=== PATIENT | male | born 1960 | race Caucasian/White ===

== ENCOUNTER 2022-10-02 11:01 | Outpatient (CLI) | payer MEDICARE, MEDICAID, SELFPAY ==
--- NOTE | 2022-10-02 11:05 | CT_ITS ---
WS: [id number] LDCT LUNG CANCER SCREENING HISTORY: NICOTINE DEPENDENCE,CIGARETTES TECHNIQUE: Axial imaging performed from the apices to 1 cm below the costophrenic angles. Coronal and sagittal reformats are submitted with axial MIP series. All CT scans at [facility] use at least one of these dose optimization techniques: automated exposure control; mA and/or kV adjustment per patient size (includes targeted exams where dose is matched to clinical indication); or iterativ e reconstruction. DLP: 84.69 mGy.cm DIvol: Mean CTDIvol: 1.60 (mGy) COMPARISON: None available. Diagnostic quality: Satisfactory. Lung Nodules: 7 mm irregular nodule RIGHT upper lobe, image 128 of series 4. Margins are slightly irr egular. Benign calcified granuloma LEFT lung base. Heart: Normal size heart. Scattered coronary artery calcifications. No effusion. Other findings: Incompletely visualized low-attenuation mass LEFT kidney measures 1.[address]/CT lung screening [id number] IMPRESSION: LUNG-RADS: 3S-Probably Benign with Significant Findings FOLLOW UP: 6 Month LDCT OTHER FINDINGS (S MODIFIER): Incompletely visualized low-attenuation mass LEFT kidney. Recommend follow-up ultrasound LEFT kidney to evaluate for cyst or vida d mass.
== END 2022-10-02 11:02 | disposition home or self-care (01) ==
LOC: RAD 11:02
PROVIDERS: PCP Nurse Practitioner Family; Visit Provider Family Medicine
DX: Z12.2 Encounter for screening for malignant neoplasm of respiratory organs (principal); F17.210 Nicotine dependence, cigarettes, uncomplicated
CPT/HCPCS: 71271

== ENCOUNTER 2022-12-18 14:26 | Outpatient (CLI) | payer MEDICARE, MEDICAID, SELFPAY ==
--- NOTE | 2022-12-18 14:41 | CT_ITS ---
WS: [id number] CT ABDOMEN AND PELVIS WITH CONTRAST HISTORY: RENAL MASS OF UNKNOWN NATURE TECHNIQUE: Imaging performed of the abdomen and pelvis with IV contrast. Single phase imaging of the abdomen. Coronal and sagittal reformats are submitted. All CT scans at [facility] use at [address] one of these dose optimization techniques: automated exposure control; mA and/or kV adjustment per patient size (includes targeted exams where dose is matched to clinical indication); or iterative re construction. IV CONTRAST: Omnipaque 350; 100 mL IV. Oral contrast: No DLP: 239.80 mGy.cm COMPARISON: CT 10/02/2022 and RIGHT upper quadrant ultrasound 09/18/2017 Lower thorax: Chronic emphysema. New bilateral lower lobe peripheral opacifications greatest on the R IGHT. Heart is normal size. Small hiatal hernia. Liver/biliary system: Normal size with no intrahepatic dilatation. Gallbladder: Contracted gallbladder. Pancreas: Very difficult to delineate without oral contrast. No abnormality identified. Spleen: Normal size spleen. No mass or infarct. Adrenal glands: Normal. Right kidney: Normal size with no obstruction. Low-attenuation cortical mass within the superior pole measures 2.1 x 1.7 cm. Hounsfield units are elevated suggesting this is not a simple cyst. There is an additional too small to characterize hypodensity in the cortex. Ultrasound would be a more efficac ious way to evaluate this mass. Left kidney: Normal size. Low-attenuation cortical mass measuring 1.9 x 1.3 cm Mildly elevated Hounsfield units. Aorta: Mild atherosclerosis with no aneurysm. Lymphadenopathy: None. Free fluid: None. GI tract: Mildly distended stomach. No small bowel obstruction. Constipation. Appendix is not visuali zed. Abdominal wall: Unremarkable abdominal wall. No hernia. Pelvis: No free fluid or adenopathy within the pelvis. Bones: Unremarkable. CT/CT abdomen pelvis w con* [id number] IMPRESSION: 1. Bilateral low-attenuation renal masses. The largest within the upper pole R IGHT kidney measures 2.1 x 1.7 cm with mildly elevated Hounsfield units. Smalle r low-attenuation mass LEFT kidney is more consistent with a cyst. Recommend re nal ultrasound follow-up especially of the RIGHT kidney to confirm this is a cy stic mass. 2. New bilateral scattered lower lobe opacifications. Suspicious for developme nt of mild pneumonitis since the prior study.
[2022-12-18 15:34] LABS: Blood Urea Nitrogen 16 mg/dL (8-23); Glomerular Filtration Rate 47.4 mL/min (90-130)
== END 2022-12-18 14:27 | disposition home or self-care (01) ==
LOC: RAD 14:31
PROVIDERS: PCP Family Medicine; Visit Provider Family Medicine
DX: N28.89 Other specified disorders of kidney and ureter (principal)
CPT/HCPCS: 74177; 82565; 84520; Q9967

== ENCOUNTER 2023-05-26 10:15 | Outpatient (CLI) | payer MEDICARE, MEDICAID, SELFPAY ==
--- NOTE | 2023-05-26 10:22 | CT_ITS ---
WS: [id number] LDCT LUNG CANCER SCREENING HISTORY: NICOTINE DEPENDENCE,CIGARETTES TECHNIQUE: Axial imaging performed from the apices to 1 cm below the costophrenic angles. Coronal and sagittal reformats are submitted with axial MIP series. All CT scans at [facility] use at least one of these dose optimization techniques: automated exposure control; mA and/or kV adjustment per patient size (includes targeted exams where dose is matched to clinical indication); or iterativ e reconstruction. DLP: 56.19 mGy.cm DIvol: Mean CTDIvol: 0.80 (mGy) COMPARISON: 10/02/2022 Diagnostic quality: Satisfactory Lungs: Chronic emphysema. Reidentified is a slightly irregular 8 mm nodule in the RIGHT upper lobe wh ich has not significantly changed since the prior examination. There are additional RIGHT apical nodu les which are also stable and probably due to fibrosis and scarring. There is a small amount of mucus debris layering in the trachea. Heart: Normal size heart with no pericardial effusion.. Other findings: There are small benign mediastinal and hilar lymph nodes. Mild atherosclerosis aorta. Normal sized pulmonary artery. Small hiatal hernia. Low-attenuation mass measures 1.7 cm LEFT kidney consistent with the previously described cyst. IMPRESSION: CT/CT lung screening [id number] LUNG-RADS: 3-Probably Benign FOLLOW UP: 6 Month LDCT, recommend continued 6-month follow-up of the 8 mm RIGH T upper lobe nodule. OTHER FINDINGS (S MODIFIER): None.
== END 2023-05-26 10:16 | disposition home or self-care (01) ==
PROVIDERS: PCP Family Medicine; Visit Provider Family Medicine
DX: Z12.2 Encounter for screening for malignant neoplasm of respiratory organs (principal); F17.210 Nicotine dependence, cigarettes, uncomplicated
CPT/HCPCS: 71271